=== PATIENT | male | born 1990 | race Caucasian/White ===

== ENCOUNTER 2018-11-17 15:32 | Emergency (ER) | payer OTHER ==
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
[2018-11-17 17:18] VITALS: BP 149/98
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
== END 2018-11-17 17:30 | disposition home or self-care (01) ==
LOC: EEVIPCON 15:32
DX: S20.212A Contusion of left front wall of thorax, initial encounter (principal); H57.89 Other specified disorders of eye and adnexa; Y04.8XXA Assault by other bodily force, initial encounter; Y07.59 Other non-family member, perpetrator of maltreatment and neglect; Y92.008 Other place in unspecified non-institutional (private) residence as the place of occurrence of the external cause